=== PATIENT | female | born 1995 | race Caucasian/White ===

== ENCOUNTER 2019-12-12 12:10 | Emergency (ER) | payer OTHER ==
[2019-12-12 12:16] VITALS: BP 134/73; PULSE 80; TEMP 97; BMI 24.2
--- NOTE | 2019-12-12 13:18 | PDOC ---
History of Present Illness - General Chief Complaint: Vaginal Bleeding Stated Complaint: VAGINAL BLEEDING Time Seen by Provider: 12/12/19 12:24 History Source: Patient Exam Limitations: No Limitations - History of Present Illness Initial Comments: 12/12/19 13:07 Patient is a 24 year old female with no past medical history of vaginal bleeding x 5 days. States 5 days ago started to have vaginal spotting, then bleeding 4 days ago and has progressively getting heavier changing 2-3 pads per day. States she had similar episodes in the past but since been on OCP Micorogestin FE her periods have been regular. However 2 weeks ago the pharmacy gave her the generic brand of her OCP. She spoke with her OBS/AUDIO VISUAL ARTS DIRECTOR and he told her that the abnormal period was most likely due to the change. State mild abd crampy pain 10. Denies nausea, vomting, dysuria. PMD: Dr. Zavala PMHX: as above PSOCHX: neg cig, neg etoh, neg drug ALL: NKDA Past History - Medical History Allergies/Adverse Reactions: Allergies Allergy/AdvReac Type Severity Reaction Status Date / Time No Known Allergies Allergy Verified 12/12/19 12:16 Home Medications: Ambulatory Orders NK [No Known Home Medication] 12/12/19 COPD: No - Reproductive History Is Patient Now?: No (#): 0 Cervical CA: No Dysfunctional Uterine Bleeding: No Ectopic : No Endometrial CA: No Polycystic Ovaries: No Tubal Ligation: No - Psycho-Social/Smoking History Smoking History: Never smoked Review of Systems - Review of Systems Able to Perform ROS?: Yes Constitutional: No: Chills, Fever HEENTM: No: Blurred Vision Respiratory: No: Cough, Shortness of Breath Cardiac (ROS): No: Chest Pain, Edema, Lightheadedness ABD/GI: No: Abdominal Distended, Abd. Pain w/ defecation, Blood Streaked Bowels, Nausea : No: Dysuria, Discharge, Flank Pain, Hematuria Neurological: No: Headache, Numbness, Paresthesia Psychiatric: No: Anxiety, Depression Endocrine: No: Excessive Sweating, Flushing, Intolerance to Cold Hematologic/Lymphatic: No: Anemia *Physical Exam - Vital Signs Last Vital Signs Temp Pulse Resp BP Pulse Ox 97 F L 80 18 134/73 99 12/12/19 12:13 12/12/19 12:13 12/12/19 12:13 12/12/19 12:13 12/12/19 12:13 - Physical Exam General Appearance: Yes: Nourished, Appropriately Dressed. No: Apparent Distress HEENT: positive: EOMI, VIJAY, Normal Voice Neck: positive: Supple Respiratory/Chest: positive: Lungs Clear, Normal Breath Sounds. negative: Respiratory Distress Cardiovascular: positive: Regular Rhythm, S1, S2. negative: Edema Female Pelvic Exam: positive: normal external exam, cervical os closed, normal adnexa, CMT, vaginal bleeding (scant amount of dark blood in the vault, no bleeding from closed os) Gastrointestinal/Abdominal: positive: Normal Bowel Sounds, Soft. negative: Tender, Organomegaly Musculoskeletal: positive: Normal Inspection Extremity: positive: Normal Capillary Refill Integumentary: positive: Normal Color Neurologic: positive: Fully Oriented, Alert, Normal Mood/Affect ED Treatment Course - LABORATORY CBC & Chemistry Diagram: 12/12/19 13:00 Medical Decision Making - Medical Decision Making 12/12/19 13:07 Patient is a 24 year old female with no past medical history of vaginal bleeding x 5 days. States 5 days ago started to have vaginal spotting, then bleeding 4 days ago and has progressively getting heavier changing 2-3 pads per day. States she had similar episodes in the past but since been on OCP Micorogestin FE her periods have been regular. However 2 weeks ago the pharmacy gave her the generic brand of her OCP. She spoke with her OBS/AUDIO VISUAL ARTS DIRECTOR and he told her that the abnormal period was most likely due to the change. State mild abd crampy pain 4/10. Denies nausea, vomting, dysuria. DUB most likely due to change in OCP labs cbc, upreg labs reviewed note stable h/h, upreg neg labs discussed with the patient and is comfortable with the plans for discharge. Patient to follow up with AUDIO VISUAL ARTS DIRECTOR. Discharge - Discharge Information Problems reviewed: Yes Clinical Impression/Diagnosis: Dysfunctional uterine bleeding Condition: Stable Disposition: HOME - Follow up/Referral Referrals: Shauna Mejía MD [Primary Care Provider] - - Patient Discharge Instructions Patient Printed Discharge Instructions: DI for Vaginal Bleeding Additional Instructions: Go back to the prior OCP and track the bleeding for the next 2 months. Follow up with your AUDIO VISUAL ARTS DIRECTOR call for further treatment plan. Return to the ED for worsening symptoms. - Post Discharge Activity
[2019-12-12 13:29] LABS: HEMOGLOBIN 14.8 GM/dL (10.7-15.3); MCH 29.4 pg (25.7-33.7); MCHC 32.9 g/dl (32.0-36.0); MEAN CELL VOLUME 89.5 fl (80-96); MEAN PLT VOLUME 8.1 fl (7.5-11.1); PLATELET COUNT 380 K/MM3 (134-434); RBC 5.02 M/mm3 (3.60-5.2); RDW 13.2 % (11.6-15.6); WHITE BLOOD COUNT 6.5 K/mm3 (4.0-10.0)
== END 2019-12-12 14:09 | disposition home or self-care (01) ==
LOC: JER 12:10
DX: N93.8 Other specified abnormal uterine and vaginal bleeding (principal)
CPT/HCPCS: 36415; 84703; 85027; 99283-25